=== PATIENT | male | born 2000 | race Caucasian/White ===

== ENCOUNTER 2023-10-31 13:20 | Inpatient (IN) ==
[2023-10-31 14:49] LABS: Urine Benzodiazepine Screen None Detected (None Detect); Urine Cannabinoids Screen Presumptive Positive (None Detect); Urine Opiates Screen None Detected (None Detect)
[2023-10-31] MEDS ORDERED: Al Hydrox/Mg Hydrox/Simet LIQ 30 ML UDC PO PRN (15:52)
[2023-11-01] MEDS: PROGESTERONE 100 MG PO SCH (09:10)
[2023-11-01] MEDS: DULoxetine DR 20 mg CAP PO SCH (09:10)
[2023-11-01] MEDS: CMCS: Estradiol 1 mg TAB (NF) PO SCH (09:10)
[2023-11-01 09:14] LABS: HDL Cholesterol 71.6 mg/dL
[2023-11-02 08:13] VITALS: BP 111/76
[2023-11-02] MEDS: DULoxetine DR 20 mg CAP PO SCH (09:28)
== END 2023-11-02 14:35 | disposition home or self-care (01) | DRG 754 ==
LOC: ED 13:20 → EDHOLD 15:52 → BSU 18:19
PROVIDERS: ADMIT Student in an Organized Health Care Education/Training Program; ATTEND Student in an Organized Health Care Education/Training Program